=== PATIENT | male | born 1990 | race Caucasian/White ===

== ENCOUNTER 2018-03-14 20:40 | Emergency (ER) | payer OTHER ==
[~2018-03-14] VITALS: Ht 185.4 cm; Wt 133.5 kg
[2018-03-14 20:46] VITALS: TEMP 36.8; Ht 185.4 cm; Wt 133.5 kg
[2018-03-14] MEDS ORDERED: CEFAZOLIN IV 2,000 MG in DEXTROSE 5% 50ML 50 ML IV STA (20:59)
[2018-03-14] MEDS ORDERED: SODIUM CHLORIDE 0.9% 1000ML 1,000 ML IV STA (20:59)
[2018-03-14] MEDS ORDERED: DIPHTHERIA/TETANUS/PERTUSSIS 0.5 ML SYR/VIAL IM. ONE (21:00)
[2018-03-14 21:24] LABS: ISTAT CREATININE 1.1 mg/dl (0.6-1.3); ISTAT IONIZED CALCIUM 1.06 mmol/l (1.12-1.32); ISTAT POTASSIUM 3.5 mEq/L (3.3-5.0)
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
[2018-03-14] MEDS ORDERED: LIDOCAINE/EPINEPHRINE 1% 20 ML VIAL INFIL ONE (21:30)
[2018-03-14 21:42] VITALS: O2SAT 96
[2018-03-14 21:57] LABS: ALBUMIN 4.3 gm/dl (3.4-5.0); CALCIUM 8.5 mg/dl (8.5-10.1); CREATININE 0.94 mg/dl (0.60-1.40); POTASSIUM 3.3 mmol/L (3.5-5.1)
[2018-03-14] MEDS ORDERED: OPTIRAY 320 IV PRN (22:00)
[2018-03-14 22:10] LABS: BASO % 0.1 %; BASO ABS # 0.03 K/uL (0-0.2); EOS % 0.1 %; EOS ABS # 0.03 K/uL (0-0.5); HEMATOCRIT 44.3 % (42-52); HEMOGLOBIN 15.4 g/dL (14.0-18.0); LYMPH % 12.1 %; LYMPH ABS # 2.75 K/uL (1.2-3.4); MEAN CELL VOLUME 87.5 fL (80-100); MEAN CORPUSCULAR HEMOGLOBIN 30.4 pg (25-34); MEAN CORPUSCULAR HGB CONC 34.8 g/dl (32-36); MEAN PLATELET VOLUME 9.3 fL (7.4-10.4); MONO ABS # 2.05 K/uL (0.11-0.59); NEUT % 78.3 %; NEUT ABS # 17.77 K/uL (1.4-6.5); PLATELET COUNT 427 K/uL (130-400); RED CELL DISTRIBUTION WIDTH CV 13.1 % (11.5-14.5); RED CELL DISTRIBUTION WIDTH SD 41.4 fL (36.4-46.3); WHITE BLOOD COUNT 22.73 K/uL (4.8-10.8)
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
[2018-03-14] MEDS ORDERED: CEPH500C2 PO (22:20)
[2018-03-14] MEDS ORDERED: OXYC1TAB3 PO (22:20)
[2018-03-14 23:34] VITALS: BP 132/74; PULSE 109; O2SAT 97
== END 2018-03-14 23:43 | disposition home or self-care (01) ==
LOC: EDBD 20:40 → C.EDC 20:42
DX: S01.111A Laceration without foreign body of right eyelid and periocular area, initial encounter (principal); S20.221A Contusion of right back wall of thorax, initial encounter; V89.2XXA Person injured in unspecified motor-vehicle accident, traffic, initial encounter; F17.220 Nicotine dependence, chewing tobacco, uncomplicated; F17.210 Nicotine dependence, cigarettes, uncomplicated; Z23 Encounter for immunization

== ENCOUNTER → 2018-03-14 | Outpatient (CLI) | payer OTHER ==
[~2018-03-14] MED LIST: CEPH500C2 PO; OXYC1TAB3 PO
== END | disposition home or self-care (01) ==
LOC: C.LAB 21:34
DX: Z02.83 Encounter for blood-alcohol and blood-drug test (principal)

== ENCOUNTER → 2018-06-25 | Outpatient (CLI) | payer OTHER ==
[~2018-06-25] MED LIST changes: +OXYC-737 PO; -OXYC1TAB3 PO
[2018-06-25 19:36] LABS: ALBUMIN 4.6 gm/dl (3.4-5.0); BLOOD UREA NITROGEN 18 mg/dl (7-18); CALCIUM 9.7 mg/dl (8.5-10.1); CARBON DIOXIDE 27 mmol/L (21-32); CHOLESTEROL 234 mg/dl (0-200); CREATININE 1.01 mg/dl (0.60-1.40); GLUCOSE 79 mg/dl (70-99); LDL CHOLESTEROL CALCULATED 162 mg/dl; PHOSPHORUS 3.6 mg/dl (2.5-4.9); POTASSIUM 3.7 mmol/L (3.5-5.1); SODIUM 138 mmol/L (136-145)
== END | disposition home or self-care (01) ==
LOC: C.LAB 17:28
PROVIDERS: ATTEND Family Medicine Adult Medicine
DX: Z00.00 Encounter for general adult medical examination without abnormal findings (principal); I10 Essential (primary) hypertension